=== PATIENT | female | born 1950 | race Caucasian/White ===

== ENCOUNTER 2022-08-28 05:13 | Observation (INO) ==
--- NOTE | 2022-07-21 15:16 | PAT Medication Instructions ---
Medication Instructions Date of Service July 21, 2022 Home Medications Medication Instructions Recorded losartan 50 mg-hydrochlorothiazide 1 tab PO QAM #90 tabs 07/25/21 12.5 mg tablet multivitamin 1 tab PO QAM anastrozole 1 mg tablet 1 mg PO QAM calcium carbonate 500 mg calcium (1,250 mg) tablet (Calcium 500) 500 mg PO QAM vitamin E 200 unit capsule 200 unit PO QAM potassium chloride 20 mEq tablet,extended release 20 meq PO QPM losartan 50 mg-hydrochlorothiazide 12.5 mg tablet 1 tab PO QAM biotin 2,500 mcg capsule 2,500 mcg PO DAILY ASK your prescriber and surgeon anastrozole 1 mg tablet 1 mg PO QAM STOP taking 2 weeks before surgery vitamin E 200 unit capsule 200 unit PO QAM biotin 2,500 mcg capsule 2,500 mcg PO DAILY DO NOT take the morning of surgery multivitamin 1 tab PO QAM calcium carbonate 500 mg calcium (1,250 mg) tablet (Calcium 500) 500 mg PO QAM potassium chloride 20 mEq tablet,extended release 20 meq PO QPM losartan 50 mg-hydrochlorothiazide 12.5 mg tablet 1 tab PO QAM OTHERWISE NOTHING TO EAT OR DRINK AFTER MIDNIGHT Other Notes If you have any questions please call us at [phone] or [phone] or [phone] or [phone]
--- NOTE | 2022-07-26 09:50 | Anesthesiology Consultation ---
Date of Service July 26, 2022 Assessment & Plan (1) Encounter for pre-operative examination: - right arm restriction. - Outpatient joint pathway: Per surgeon and patient, plan for outpatient joint program. Upon review of chart- patient is an acceptable candidate for Same Day Joint Program from anesthesia perspective pending perioperative course. Pending patient is motivated, has good support and surgeon's office completes Same Day Joint Program preop requirements- patient may proceed with outpatient [facility]AYNA[facility]. Chart Review Chart Review: Acceptable Risk for Surgery and Patient seen in Pre Admission Testing Teaching & Discussion Pre-Anesthesia Teaching/Discussion Notes: Instructed NPO after midnight before surgery, except medications with 15 cc of water. Medication instructions p rovided according to the PAT guidelines. History Surgery Operation Date: 08/28/22 08:50 Proposed Procedures p Left Total Hip Arthroplasty Anterior - Josh Billings DO Height/Weight Height: 5 ft 4 in Weight: 83.3 kg Allergies Allergy/AdvReac Type Severity Reaction Status Date / Time No Known Allergies Allergy Verified 07/21/22 11:19 Medications Home Medications Medication Instructions Recorded Confirmed Last Taken multivitamin 1 tab PO QAM 04/25/19 07/21/22 Unknown anastrozole 1 mg tablet 1 mg PO QAM 12/18/19 07/21/22 05/19/21 08:30 calcium carbonate 500 mg calcium 500 mg PO QAM 02/05/20 07/21/22 Unknown (1,250 mg) tablet (Calcium 500) vitamin E 200 unit capsule 200 unit PO QAM 07/30/20 07/21/22 Unknown potassium chloride 20 mEq 20 meq PO QPM 05/10/21 07/21/22 Unknown tablet,extended release losartan 50 mg-hydrochlorothiazide 1 tab PO QAM #90 tabs 07/25/21 07/21/22 Unknown 12.5 mg tablet biotin 2,500 mcg capsule 2,500 mcg PO DAILY 07/21/22 07/21/22 Unknown Past Medical History Medical History (Updated 07/26/22 @ 10:05 by Nissa William PA-C) Breast cancer, right diagnosed 01/2019--radiation, oral chemo, sx: right arm restriction Colon polyp Diverticula of colon Drug-induced hypokalemia History of COVID-19 hx October 2021 and November 2021 > mild > not hospitalized > symptoms fully resolved History of postoperative nausea and vomiting after cholecystectomy, denies needing scop patch Hypertension controlled, stable per pt Limb alert care status right arm Patient denies h/o stroke, seizures, heart attack, heart failure, DM, blood clots or blood transfusions. Exercise / Class Metabolic Activity III < 4 Walking/Shop/Light housework (denies chest discomfort or shortness of breath with usual activities, lives on one floor) Past Family History Family History Mother , age 75 Non Hodgkin's lymphoma Hypertension Father , age 90 Prostate cancer Heart disease Myocardial infarction Hypertension Family history of reaction to anesthesia difficulty waking Family hx colonic polyps Sister No problems noted. Brother No problems noted. Daughter No problems noted. Son No problems noted. Grandfather (Maternal) Throat cancer Other Colorectal cancer Denies family history of Ovarian cancer Diabetes Breast cancer Stroke Past Surgical History Surgical History History of bunionectomy of right great toe History of colonoscopy with polypectomy 02/04 repeat 5 yrs History of gynecological procedure (~04/26/21) endometrial biopsy History of lymph node dissection of right axilla History of tooth extraction Hx laparoscopic cholecystectomy surgery 2 yrs ago Hx of bursectomy left hip S/P LASIK surgery of both eyes surgery 11 yrs ago S/P right breast biopsy surgery 03-26-2019--malignant Status post right breast lumpectomy surgery 03-07-2019 Past Anesthesia History No Hx of Anesthesia Complications and No Family Hx of Anesthesia Complications History of PONV No Hx of Motion Sickness and History of PONV (after cholecystectomy, denies needing scop patch) Social History Smoking Status: Never smoker Do You Dip or Chew Tobacco: No Hx Alcohol Use: No Alcohol type: wine alcohol intake frequency: a few times a month Hx Substance Use: No substance use type: does not use Review of Systems Patient denies chest pain, shortness of breath, dyspnea on exertion, snoring, witnessed apneas, reflux, fever, chills, cough, wheezing, or palpitations. Physical Exam Vital Signs Vitals BP 127/87 P 78 TEMP 98.3 SP02 96% on RA RESP 18 Physical Full cervical extension range of motion without pain TMD 3.5 finger breadths Mallampati Score 2 Dentition: several permanent bridges-two right upper and lower side and one left upper side; denies chipped or loose teeth Lungs: normal respiratory effort. Clear throughout to auscultation, no adventitious breath sounds Cardiac: regular rate and rhythm, no murmurs noted Carotid arteries: negative bruit bilat Lab Results Anesthesia Preop Results Results Anesthesia Widget: WBC 7.15 K/ul (4.8-10.8) 07/26/22 Hgb 14.8 g/dl (12.0-16.0) 07/26/22 Hct 41.5 % (37.0-47.0) 07/26/22 Plt 209 K/uL (130-400) 07/26/22 Na 140 mmol/L (136-145) 07/26/22 K 3.6 mmol/L (3.5-5.1) 07/26/22 Cl 105 mmol/L (98-107) 07/26/22 CO2 31 mmol/L (21-32) 07/26/22 BUN 17 mg/dl (6-23) 07/26/22 Creat 0.75 mg/dl (0.6-1.2) 07/26/22 Glucose Level 95 mg/dl (70-99(Fasting)) 07/26/22 PT 10.6 Seconds (9.0-12.0) 07/26/22 PTT 24.8 Seconds (21.0-31.0) 07/26/22 INR 1.0 (0.9-1.1) 07/26/22 Blood Type A Positive 07/26/22 Antibody Screen NEGATIVE 07/26/22 Testing Electrocardiogram Date: 07/26/22 NSR, rate 79 bpm Chest X-Ray Date: 07/26/22 No pneumothorax. No pleural effusions. The heart is normal in size. There is a mildly tortuous thoracic aorta. Incidental note is made of a small right azygos lobe. IMPRESSION: No acute process. COVID-19 Risk Screen Screening Information COVID-19 Screen Date: 07/26/22 Exposure 21 Days Family/Household +COVID Last 21 Days: No Exposure 10 Days Any COVID Exposure Last 10 Days: No Symptoms Last 10 Days Experienced COVID Sx Last 10 Days: No + COVID 0-90 Days COVID + in Last 0-90 Days: No
--- NOTE | 2022-08-24 09:13 | History & Physical Report ---
Date of Service August 24, 2022 Assessment & Plan (1) Osteoarthritis of left hip: We will proceed with a left anterior total of arthroplasty. Postoperatively she will be in our outpatient joint protocol. We will start her on aspirin and discharged her to home on oral pain medications. She plans to see [facility] the following day. History of Present Illness Chief Complaint: Osteoarthritis of the left hip. Primary Care Provider: Josh Gallagher DO Opal is a pleasant 71-year-old female who I did a left trochanteric bursectomy on a year ago. Unfortunately, she continues to have pain. Most of her pain is located in her groin. X-ray showed some mild arthritis, so I sent her for an MRI. The MRI showed more [id number] arthritis in her hip. She is still complaining of a lot of hip pain. After failing extensive conservative treatment, she has elected to proceed with a left anterior total hip arthroplasty. . Allergies Allergy/AdvReac Type Severity Reaction Status Date / Time No Known Drug Allergies Allergy Verified 08/03/22 16:04 Home Medications Medication Instructions Recorded Confirmed Type multivitamin 1 tab PO QAM 04/25/19 08/03/22 History anastrozole 1 mg tablet 1 mg PO QAM 12/18/19 08/03/22 History calcium carbonate 500 mg calcium 500 mg PO QAM 02/05/20 08/03/22 History (1,250 mg) tablet (Calcium 500) vitamin E 200 unit capsule 200 unit PO QAM 07/30/20 08/03/22 History potassium chloride 20 mEq 20 meq PO QPM 05/10/21 08/03/22 History tablet,extended release biotin 2,500 mcg capsule 2,500 mcg PO DAILY 07/21/22 08/03/22 History losartan 50 mg-hydrochlorothiazide 1 tab PO QAM #90 tabs 08/03/22 08/03/22 Rx 12.5 mg tablet Past Med/Surg History Medical History Breast cancer, right diagnosed 01/2019--radiation, oral chemo, sx: right arm restriction Colon polyp Diverticula of colon Drug-induced hypokalemia History of COVID-19 hx October 2021 and November 2021 > mild > not hospitalized > symptoms fully resolved History of postoperative nausea and vomiting after cholecystectomy, denies needing scop patch Limb alert care status right arm Malignant neoplasm of upper-outer quadrant of right breast in female, estrogen receptor positive (03/07/19) Surgical History History of bunionectomy of right great toe History of colonoscopy with polypectomy 02/04 repeat 5 yrs History of gynecological procedure (~04/26/21) endometrial biopsy History of lymph node dissection of right axilla History of tooth extraction Hx laparoscopic cholecystectomy surgery 2 yrs ago Hx of bursectomy Hx of bursectomy left hip S/P LASIK surgery of both eyes surgery 11 yrs ago S/P right breast biopsy surgery 03-26-2019--malignant Status post right breast lumpectomy surgery 03-07-2019 Family History Mother , age 75 Non Hodgkin's lymphoma Hypertension Father , age 90 Prostate cancer Heart disease Myocardial infarction Hypertension Family history of reaction to anesthesia difficulty waking Family hx colonic polyps Sister No problems noted. Brother No problems noted. Daughter No problems noted. Son No problems noted. Grandfather (Maternal) Throat cancer Other Colorectal cancer Denies family history of Ovarian cancer Diabetes Breast cancer Stroke Social History Smoking Status: Never smoker Age Started Using Tobacco: 16; Second Hand Exposure: No; Hx Alcohol Use: No Hx Substance Use: No Preferred Language: Vietnamese Communication Ability: Effective Visual Impairment: No Limitations Hearing Ability: Normal Relocation Director Required: No Beliefs That Will Affect Care: None marital status: Current Living Situation: Spouse current occupational status: retired How many Children do You have: 2 Feels Safe at Home: Yes Childhood Exposure to Second-Hand Smoke: Yes caffeine: Yes (coffee) Dental Care, Regularly: Yes Physical Activity Frequency: Daily Physical Activity Frequency Comment: walking daily Seatbelt Use: always Sunscreen Use: Yes Assistive Devices: None Review of Systems All systems reviewed & are unremarkable except as noted in HPI & below. Physical Exam On physical examination of left hip, she has decreased range of motion. She has pain with both internal and external rotation.. Constitutional WD/WN, vitals as above Eyes PERRL, conjunctivae normal, anicteric sclerae ENMT external ear and nose normal, oropharynx normal Neck trachea midline, no thyromegaly Respiratory normal respiratory effort, lungs clear to auscultation Cardiovascular RRR, no murmur, no edema Gastrointestinal (Abdomen) normal bowel sounds, soft, nontender, no hepatosplenomegaly Skin no rashes, warm and dry Psychiatric A+Ox3, euthymic affect Results & Data Results & Data Laboratory Results . Diagnostic Findings X-rays of the left hip show mild osteoarthritis with some joint space narrowing. MRI of the left hip shows moderate to severe osteoarthritis.. PG Care Time/CCT Total # of Minutes Spent Total Time Spent with Patient: Total time spent is greater than 50% in coordination of care (as documented) at patient's floor/unit and/or counseling patient: Coding Level of Care Code None Diagnoses Osteoarthritis of left hip M16.12
[2022-08-28] MEDS ORDERED: LR 500ML BOLUS, THEN 15ML/HR IV SCH (06:00)
[2022-08-28] MEDS ORDERED: TRANEXAMIC ACID 1,000 MG **IV Intra-op IV SCH (06:00)
[2022-08-28] MEDS ORDERED: FAMOTIDINE 20 MG TAB PO SCH (06:00)
[2022-08-28] MEDS ORDERED: TRANEXAMIC ACID 1,000 MG **IV Pre-op IV SCH (06:00)
[2022-08-28] MEDS ORDERED: ORTHO JOINT MIX INFIL SCH (06:00)
[2022-08-28] MEDS ORDERED: GABAPENTIN 300 MG CAP PO SCH (06:00)
[2022-08-28] MEDS ORDERED: ACETAMINOPHEN 500 MG TAB PO SCH (06:00)
[2022-08-28] MEDS ORDERED: LR 60ML/HR IV SCH (06:00)
[2022-08-28] MEDS ORDERED: dexAMETHasone 4 MG TAB PO SCH (06:00)
[2022-08-28] MEDS ORDERED: ceFAZolin 2000MG 2,000 MG/15 ML SYR IV SCH (06:00)
[2022-08-28] MEDS ORDERED: MEPIVACAINE HCL 1.5% 30 ML VIAL ONE (06:22)
[2022-08-28] MEDS ORDERED: ONDANSETRON INJ 2 MG/ML 2 ML VIAL IV PRN ×2 (06:37→15:00)
[2022-08-28] MEDS ORDERED: fentaNYL citrate PF 100 MCG/2 ML VIAL IV PRN (06:37)
[2022-08-28] MEDS ORDERED: ATROPINE SULFATE 0.1 MG/ML 10ML SYR IV PRN (06:37)
[2022-08-28] MEDS ORDERED: ePHEDrine sulfate 50 MG/ML AMP IV PRN (06:37)
[2022-08-28] MEDS ORDERED: ORTHO JOINT ANESTHETIC ONE (06:38)
[2022-08-28] MEDS ORDERED: MIDAZOLAM HCL 1 MG/ML 2ML VIAL ONE (06:47)
[2022-08-28] MEDS ORDERED: LIDOCAINE 2% MPF LOCAL 5 ML VIAL INFIL ONE (06:49)
[2022-08-28] MEDS ORDERED: PROPOFOL IV EMULSION 10 MG/ML 20 ML VIAL IV ONE (06:49)
--- NOTE | 2022-08-28 06:53 | History & Physical Bridge Note ---
Date of Service August 28, 2022 History & Physical Bridge Note I have examined the patient, reviewed the History & Physical and in the interval since the performance of the History & Physical I have noted the following changes of clinical significance: no changes noted
[2022-08-28] MEDS ORDERED: PHENYLEPHRINE 100MCG/ML 5ML SYR ONE (07:27)
[2022-08-28] MEDS ORDERED: ePHEDrine sulfate 50 MG/ML SYR ONE (07:49)
--- NOTE | 2022-08-28 08:24 | Operative Report ---
PG Post Operative Report Pre & Post Diagnosis Operation Date: 08/28/22 07:00 Pre-Op Diagnosis: Degenerative Joint Disease Left Hip Post-Op Diagnosis: Degenerative Joint Disease Left Hip I identified the patient and participated in the time-out.: Yes Procedure Operation Date: 08/28/22 07:00 Actual Procedures p Left Anterior Total Hip Arthroplasty(Left) - Josh Billings DO Surgeon Josh Billings DO [employer] Josh Arguelles PA-C Estimated Blood Loss 350 Findings Consistent with Post-Op Diagnosis Specimens Left femoral head Description of Procedure Implants used I used a [employer]immer[employer] total hip arthroplasty system with a size 4 standard offset Avenir Complete stem, a 50 mm G7 cup with a 25mm screw, an E1 polyethylen e liner, a 36 mm ceramic head with a 0 neck. Opal arrived at the hospital for the above procedure. She was seen in the preoperative holding area and the operative extremity was identified and signed. She was given a spinal anesthetic, a preoperative antibiotic, and TXA. She was then taken back to the operating room and laid on the table in the supine position. She was given basic sedation. The operative leg was secured to a Puristst leg positioner. The hip was then prepped and draped in sterile fashion. A timeout was done and the patient and the operative extremity was properly identified. An anterior approach was used. Dissection was taken down through the fascia and the tensor muscle belly was retracted laterally and the rectus was retracted medially. The circumflex vessels were identified and ligated. The capsule was then incised and tagged for later repair. The femoral neck was then cut and the femoral head was removed. The acetabulum was exposed. Time was spent doing a complete circumferential labral release. Sequential reaming of the acetabulum up to a size 49 reamer was done. Final reamings were done under fluoroscopy to ensure appropriate version. A Biomet 50 mm G7 cup was then impacted into place. A single 25 mm screw was placed. The E1 polyethylene liner was then snapped into place. Surrounding soft tissues were then injected with 100 cc of an or thopedic pain control cocktail. The proximal femur was then exposed. Sequential broaching up to a size 4 broach was done. Off that broach a size 36 head with a 0 neck was trialed. The hip was reduced and fluoroscopic images showed anatomic alignment of the implants in acceptable length. The broach was removed. The final size 4 standard offset Avenir Complete stem was then impacted into place. A ceramic 36 mm head with a 0 neck was then impacted onto the stem and the hip was reduced. Final fluoroscopic images showed anatomic alignment of the hip. The capsule was then closed with #1 Vicryl suture. A dilute betadyne lavage was then done for 3 minutes. The joint was then irrigated with normal saline solution. The fascia was closed with #1 PDS suture. Skin was closed with 2-0 Vicryl, josef, and a Silverlon dressing. She was then transferred to a hospital bed and taken to the post anesthesia care unit in stable condition. She tolerated the procedure well. Josh Arguelles PA-C, was present for the entire procedure. He was critical for patient positioning, prepping, draping, retraction exposure, wound closure and application of sterile dressing. I attest to the content of the Intraoperative Record and any orders documented therein. Any exceptions are noted below.
[2022-08-28] MEDS ORDERED: oxyCODONE/ACETAMINOPHEN 5mg/325mg TAB PO PRN (08:44)
--- NOTE | 2022-08-28 09:12 | Fluoroscopy Report ---
FL hip LT 1V CLINICAL HISTORY: LEFT ANTERIOR HIP COMPARISON STUDY: Pelvis and left hip radiographs January 11, 2022. FLUOROSCOPY TIME: 22 seconds. EXPOSURE DOSE: 2.0119 mGy FLUOROSCOPIC IMAGES: 1 FINDINGS: Fluoroscopy was provided during total left hip arthroplasty. No fracture is identified by f luoroscopy. There is an acetabular screw. Hardware is intact. No unexpected radiopaque foreign bodies . IMPRESSION: Fluoroscopy provided during total left hip arthroplasty. ACT 112: Negative or not required by law. Electronically signed by: Kian Daugherty M.D. 08/28/2022 9:11 AM
--- NOTE | 2022-08-28 09:16 | XRay Report ---
SINGLE VIEW PELVIS; SINGLE VIEW LEFT HIP CLINICAL HISTORY: Postoperative examination. FINDINGS: An AP portable view of the hips and pelvis with a crosstable lateral portable view of the l eft hip are compared to study dated 07/31/2019. The skeletal structures are osteopenic. A bipolar left hip arthroplasty is in near-anatomic alignment. A single cortical lag screw transfixes the acetabula r cup. No acute fracture is identified. There are expected postoperative changes overlying the left h ip including skin clips, subcutaneous gas, and soft tissue swelling. Moderate degenerative joint spac e narrowing is seen in the right hip. Degenerative sclerosis is noted in the partially visualized sac roiliac joints. Phleboliths are seen in the pelvis. IMPRESSION: Expected postoperative findings status post left hip arthroplasty. No acute fracture is s een. ACT 112: Negative or not required by law. Electronically signed by: Angel Green M.D. 08/28/2022 9:14 AM
--- NOTE | 2022-08-28 09:45 | Anesthesiology Progress Note ---
Date of Service August 28, 2022 Anesthesia Post Procedure Vital Signs Vital Signs: Temp Pulse Pulse Resp BP Pulse Ox O2 Del Method 08/28/22 09:27 97.5 F L 81 20 111/72 94 Room Air 08/28/22 09:20 97.3 F L 86 17 112/75 93 Room Air 08/28/22 09:10 87 20 107/71 92 Room Air 08/28/22 09:00 88 19 113/71 95 Room Air 08/28/22 08:50 95 H 24 106/71 93 Room Air 08/28/22 08:44 97.3 F L 99 H 24 91/63 L 95 Room Air 08/28/22 05:41 98.4 F 86 20 132/89 95 Room Air Pain Intensity Left Hip: Pain Intensity: 3 Transfer of Care Handoff Completed per policy Notes Mental Status: alert / awake / arousable and participated in evaluation Patient Amnestic to Procedure: Yes Nausea / Vomiting: adequately controlled Pain: adequately controlled Airway Patency, RR, SpO2: stable & adequate BP & HR: stable & adequate Hydration State: stable & adequate Neuraxial Anesthesia: was administered and sensory block is resolving Anesthetic Complications: no major complications apparent and Pt Satisfied with anesthetic care
[2022-08-28] MEDS ORDERED: bisacodyL 10 MG SUPP PR PRN (15:00)
[2022-08-28] MEDS ORDERED: NALOXONE HCL 0.4 MG/1 ML VIAL/CARP IV PRN (15:00)
[2022-08-28] MEDS ORDERED: HYDROmorphone INJ 0.5 MG/0.5 ML SYR IV PRN (15:00)
[2022-08-28] MEDS ORDERED: oxyCODONE HCL IR 5 MG TAB (IMMEDIATE RELEASE) PO PRN (15:00)
[2022-08-28] MEDS ORDERED: MAGNESIUM HYDROXIDE SUSP 30 ML UDC PO PRN (15:00)
[2022-08-28] MEDS ORDERED: METOCLOPRAMIDE HCL INJ 5 MG/ML 2 ML VIAL IV PRN (15:00)
[2022-08-28] MEDS: SODIUM CHLORIDE 0.9% 1000ML 1,000 ML IV SCH (15:08)
[2022-08-28] MEDS: KETOROLAC TROMETHAMINE 15 MG/ML VIAL IV SCH ×2 (16:29→21:36)
[2022-08-28] MEDS: ACETAMINOPHEN 500 MG TAB PO SCH ×3 (16:29→23:18)
[2022-08-28] MEDS: ASPIRIN 81 MG ECTAB PO SCH (19:53)
[2022-08-28] MEDS: DOCUSATE SODIUM 100 MG CAP PO SCH (19:53)
[2022-08-28] MEDS ORDERED: POTASSIUM CHLORIDE CRTAB 20 MEQ TABCR PO SCH (21:00)
[2022-08-28] MEDS ORDERED: SENNA 8.6 MG TAB PO SCH (21:00)
[2022-08-28] MEDS: ceFAZolin 2000MG 2,000 MG/15 ML SYR IV SCH (21:35)
[2022-08-29] MEDS: KETOROLAC TROMETHAMINE 15 MG/ML VIAL IV SCH ×2 (02:55→08:32)
[2022-08-29] MEDS: SODIUM CHLORIDE 0.9% 1000ML 1,000 ML IV SCH (03:08)
[2022-08-29] MEDS: ceFAZolin 2000MG 2,000 MG/15 ML SYR IV SCH (05:07)
[2022-08-29] MEDS: ACETAMINOPHEN 500 MG TAB PO SCH (06:32)
--- NOTE | 2022-08-29 07:06 | Orthopedic Progress Note ---
Date of Service August 29, 2022 Assessment & Plan (1) Status post left hip replacement: Overall she is doing very well. She is not having much pain in the right hip. She will be seen by physical therapy today for ambulation and range of motion exercises. She can be discharged home later today. She will follow-up orthopedics in 2 weeks. Kel King was seen and examined at bedside this morning. Overall she is feeling much better. She is no longer nauseous. She has been up and ambulating some without any symptoms. She has no complaints.. Review of Systems All systems reviewed & are unremarkable except as noted in HPI & below. Physical Exam On physical examination of the left hip, the dressing is clean and dry. Her leg is out full extension.. Results & Data Results & Data Laboratory Results . Diagnostic Findings Postoperative x-rays of the left hip show the prosthesis to be in anatomic alignment without any evidence of fracture, cage, or loosening. PG Care Time/CCT Total # of Minutes Spent Total Time Spent with Patient: Total time spent is greater than 50% in coordination of care (as documented) at patient's floor/unit and/or counseling patient: Coding Level of Care Code 46883 Post Operative Follow-Up Diagnoses Status post left hip replacement Z96.642
--- NOTE | 2022-08-29 07:08 | Discharge Summary ---
Date of Service August 29, 2022 Admission HPI (Per Admitting) Opal is a pleasant 71-year-old female who I did a left trochanteric bursectomy on a year ago. Unfortunately, she continues to have pain. Most of her pain is located in her groin. X-ray showed some mild arthritis, so I sent her for an MRI. The MRI showed more [id number] arthritis in her hip. She is still complaining of a lot of hip pain. After failing extensive conservative treatment, she has elected to proceed with a left anterior total hip arthroplasty. . Admission Exam (Per Admitting) On physical examination of left hip, she has decreased range of motion. She has pain with both internal and external rotation.. Principal Diagnosis Same as "Discharge Diagnosis" noted below under Discharge Instructions. Discharge Exam On physical examination of the left hip, the dressing is clean and dry. Her leg is out full extension.. Discharge Data Procedures Performed Operation Date: 08/28/22 07:00 Actual Procedures p Left Anterior Total Hip Arthroplasty(Left) - Josh Billings DO Ordered Studies 08/28/22 07:00 FL hip LT 1V Routine Hospital Course (1) Status post left hip replacement: On August 28, 2022 Opal arrived at [facility] and underwent a left hip replacement without complication. Postoperatively she was started on aspirin for DVT prophylaxis and was in our outpatient joint protocol. Unfortunately she was dealing with orthostatic hypotension during therapy. She was also dealing with significant nausea. She was then admitted overnight. On postop day #1, she was feeling much better. Her vital signs were stable and her pain was well controlled. She was able to participate well with physical therapy doing ambulation and range of motion exercises. She was then discharged home. She will follow-up with orthopedics in 2 weeks. PG Care Time/CCT Total # of Minutes Spent Total Time Spent with Patient: Total time spent is greater than 50% in coordination of care (as documented) at patient's floor/unit and/or counseling patient: Discharge Plan Discharge Items Patient Disposition: Home - Home Health Services Reason For Visit: DJD Hip Left Discharge Diagnosis: same as above Activity: Per Instructions section Non-emergency contact: Surgeon Call non-emergency contact if: your wound has increased redness and your wound has increased drainage Follow-up/Referrals: [facility] [Outside] Shunk,Josh R., DO [Primary Care Provider] - Diet: Regular Addtl Attending Provider Instructions: Activity and Therapy Recommendations: * If you are using [facility] then therapy will be provided at your home until they feel you have accomplished all of your goals. * If you are using [facility] then Physical Therapy will be provided until they feel you are ready to start Outpatient Physical Therapy. * If you are not using home therapy then Outpatient Physical Therapy should start about 3-5 days from your day of surgery. Therapy will last about 6-10 weeks * You were shown a series of exercises in the hospital. Do these exercises three times each day including the exercises you were shown in physical therapy. * Get up and walk several times each day.~ For the first four weeks, try not to stand or walk for more than one hour at a time. If you do stand or walk for more than one hour, you will not hurt anything, but your leg will likely swell.~~ * As you feel comfortable, you may change from the walker or crutches to a cane and~then to independent walking. Medications: * Narcotic You will likely be sent home from the hospital with a prescription for the narcotic pain medication that worked best throughout your stay. * Aspirin Most patients will be required to take Aspirin 81mg twice a day for 6 weeks after surgery. This is obtained [id number] and a prescription is not necessary. * Other medications may be prescribed for specific circumstances. If you have any questions, please call the office at . * Resume previous home medications unless otherwise instructed TEDs/Elastic Stockings: The white elastic stockings help limit swelling and prevent blood clots from forming in your legs. The more you wear them, the more they work. Wear them for six weeks. Dressing Care: Leave the Silverlon dressing in place for 7 days. After 7 days you may remove the dressing. If the incision is not draining then you may leave the josef open to air. If there is a little bit of drainage or if the josef are getting stuck on your clothing then cover the incision with a dry dressing. The josef will be removed at your 2 week follow-up appointment. Showering: You may shower with the Silverlon dressing in place. Do not let the shower spray hit the dressing directly. Pat the Silverlon dressing dry. If the dressing becomes wet underneath, then simply remove the dressing. Keep the incision dry until you are 7 days out from the day of surgery. After 7 days you may remove the Silverlon dressing and shower with the josef exposed. Let soapy water run over the josef and pat them dry. Do not scrub or soak the incision. Things To Watch For: * Drainage from the incision site that occurs more than one week after your surgery. * Increased redness at the incision site. * Fever above 102 degrees Fahrenheit. * Unusual chest pain or shortness of breath. * Call [facility] at with any of the above pro blems Follow-Up Visit: Follow-up with Dr. Billings's PA (Josh Arguelles) 2-3 weeks after your day of surgery. He will remove your josef and answer any questions. If you have any additional questions or concerns, Dr Billings is usually in the office at the same time and will be available An appointment was probably scheduled when you signed-up for surgery in the office. If you have any questions call Office Instructions: More detailed instructions as well as Frequently Asked Questions were provided in a folder by our office when you signed-up for surgery. Please review these instructions when you get home. If you have any further questions or concerns, please feel free to call the office at [phone] Pending Studies at Discharge: No Stand-Alone Forms: Anesthesia/Sedation, Adult, My [facility], Smoking Cessation Medications and DC Order Prescriptions: New celecoxib [Celebrex] 200 mg capsule 200 mg PO Q12H PRN (Reason: pain) Qty: 60 0RF oxycodone-acetaminophen [Percocet] 5-325 mg tablet 1 tab PO Q6H PRN (Reason: pain) Qty: 30 0RF aspirin 81 mg tablet,delayed release (DR/EC) 81 mg PO BID Qty: 60 0RF Continued multivitamin tablet 1 tab PO QAM anastrozole 1 mg tablet 1 mg PO QAM vitamin E 200 unit capsule 200 unit PO QAM losartan-hydrochlorothiazide 50-12.5 mg tablet 1 tab PO QAM Qty: 90 3RF calcium carbonate [Calcium 500] 500 mg calcium (1,250 mg) Tablet 500 mg PO QAM potassium chloride 20 mEq Tablet Extended Release 20 meq PO QPM biotin 2,500 mcg Capsule 2,500 mcg PO DAILY Krames/Other Patient Handouts: DVT Post Op Prevention Admission Data Admit Date/Time: 08/28/22 13:51 Attending Provider: Josh Billings Admit Provider: Josh Billings Primary Care Provider: Josh Gallagher
[2022-08-29] MEDS ORDERED: dexAMETHasone 4 MG TAB PO SCH (08:00)
[2022-08-29] MEDS: DOCUSATE SODIUM 100 MG CAP PO SCH (08:30)
[2022-08-29] MEDS: ASPIRIN 81 MG ECTAB PO SCH (08:31)
[2022-08-29] MEDS ORDERED: MULTIVITAMIN TAB PO SCH (09:00)
[2022-08-29] MEDS ORDERED: LOSARTAN/HCTZ 50/12.5MG TAB PO SCH (09:00)
[2022-08-29] MEDS ORDERED: ANASTROZOLE 1 MG TAB PO SCH (09:00)
[2022-08-29 10:56] VITALS: BP 117/79; PULSE 88; TEMP 98.4; O2SAT 98
== END 2022-08-29 12:18 | disposition home health service (06) ==
LOC: ASU 05:13 → 3W 05:13